=== PATIENT | female | born 1985 | race African-American/Black ===

== ENCOUNTER 2018-02-24 04:12 | Emergency (ER) | payer OTHER ==
[2018-02-24] MEDS ORDERED: HYDROmorphone INJ* 2 MG/ML CARPUJECT SYRINGE IV SLOW PU ONE (04:28)
[2018-02-24] MEDS ORDERED: Metoclopramide IV* 5 MG/ML 2 ML VIAL IV SLOW PU ONE (04:28)
[2018-02-24 04:49] LABS: Hematocrit 43 % (35-47); Mean Corpuscular HGB Conc 35 g/dl (31-36); Mean Corpuscular Hemoglobin 30 pg (27-31); Mean Corpuscular Volume 88 fL (80-97); Mean Platelet Volume 8.9 um3 (7.4-10.4); Platelet Count 191 10^3/ul (150-450); Red Blood Count 4.93 10^6/ul (4.0-5.4); Red Cell Distribution Width 13 % (10.5-15)
[2018-02-24 05:07] LABS: ABS Basophils 0 10^3/ul (0-0.2); ABS Eosinophils 0.1 10^3/ul (0-0.6); ABS Lymphocytes 4.2 10^3/ul (1.0-4.8); ABS Monocytes 0.5 10^3/ul (0-0.8); ABS Neutrophils 1.2 10^3/ul (1.5-7.7)
[2018-02-24 05:11] LABS: Urine Appearance Cloudy; Urine Blood 2+ (Negative); Urine Color Yellow; Urine Ketones Negative (Negative); Urine Protein Negative (Negative); Urine Specific Gravity 1.028 (1.010-1.030); Urine Urobilinogen Negative (Negative)
[2018-02-24 05:51] LABS: ABS Nucleated RBC 0 10^3/ul; Eosinophil % 1.2 % (0-6); Lymphocyte % 70.1 % (25-47); Nucleated Red Blood Cells % 0.1
[2018-02-24] MEDS ORDERED: Ondansetron INJ* 2 MG/ML VIAL IV ONE (06:36)
--- NOTE | 2018-02-24 06:54 | ED ---
Randolph Jack Elizabeth, scribed for Dick Burns MD on 02/24/18 at 0429 . Abdominal Pain/Female - HPI Summary HPI Summary: This patient is a 32 year old F presenting to [facility] with a chief complaint of lower abd pain since 0:00. The patient reports that she had intercourse at 0:00 , after which she noticed the pain. She reports that the pain radiates to her vagina and she has had some vaginal discharge. The patient notes that the pain worsened at 3:30. The patient rates the pain 9/10 in severity. Symptoms aggravated by nothing. Symptoms alleviated by nothing. Patient denies , nausea or vomiting. LNMP was 6 days ago. The patient uses the NuvaRing. - History of Current Complaint Chief Complaint: EDGeneral Stated Complaint: ABD PAIN Time Seen by Provider: 02/24/18 04:20 Hx Obtained From: Patient Onset/Duration: Gradual Onset, Lasting Hours - since 0:00, Still Present Timing: Constant Severity Initially: Moderate Severity Currently: Moderate Pain Intensity: 9 Pain Scale Used: 0-10 Numeric Location: Diffuse Radiates to: Other - vaginal cordova Aggravating Factor(s): Nothing Alleviating Factor(s): Nothing Associated Signs and Symptoms: Positive: Vaginal Discharge. Negative: Nausea, Vomiting Allergies/Adverse Reactions: Allergies Allergy/AdvReac Type Severity Reaction Status Date / Time No Known Allergies Allergy Verified 11/12/12 08:59 PMH/Surg Hx/FS Hx/Imm Hx Opthamlomology History: Denies: Hx Legally Blind Infectious Disease History: No Infectious Disease History: Denies: Traveled Outside the [place] in Last 30 Days - Family History Known Family History: Negative: Seizure Disorder - Social History Alcohol Use: Rare Substance Use Type: Reports: None Smoking Status (MU): Former Smoker Review of Systems Negative: Epistaxis Negative: Chest Pain Positive: Abdominal Pain - lower abdomen. Negative: Vomiting, Nausea Positive: discharge All Other Systems Reviewed And Are Negative: Yes Physical Exam - Summary Physical Exam Summary: VITAL SIGNS: Reviewed. GENERAL: ~Patient is a well-developed and nourished female who uncomfortable and thrashing in the stretcher. Patient is not in any acute respiratory distress. HEAD AND FACE: No signs of trauma. No ecchymosis, hematomas or skull depressions. No sinus tenderness. EYES: PERRLA, EOMI x 2, No injected conjunctiva, no nystagmus. EARS: Hearing grossly intact. Ear canals and tympanic membranes are within normal limits. MOUTH: Oropharynx within normal limits. NECK: Supple, trachea is midline, no adenopathy, no JVD, no carotid bruit, no c- spine tenderness, neck with full ROM. CHEST: Symmetric, no tenderness at palpation LUNGS: Clear to auscultation bilaterally. No wheezing or crackles. CVS: Regular rate and rhythm, S1 and S2 present, no murmurs or gallops appreciated. ABDOMEN: Soft. RLQ tenderness. No signs of distention. No rebound no guarding, and no masses palpated. Bowel sounds are normal. EXTREMITIES: FROM in all major joints, no edema, no cyanosis or clubbing. NEURO: Alert and oriented x 3. No acute neurological deficits. Speech is normal and follows commands. SKIN: Dry and warm Triage Information Reviewed: Yes Vital Signs On Initial Exam: Initial Vitals Temp Pulse Resp BP Pulse Ox 97.1 F 90 22 150/130 100 02/24/18 04:13 02/24/18 04:13 02/24/18 04:13 02/24/18 04:13 02/24/18 04:13 Vital Signs Reviewed: Yes Diagnostics - Vital Signs Vital Signs Temp Pulse Resp BP Pulse Ox 02/24/18 04:13 97.1 F 90 22 150/130 100 - Laboratory Result Diagrams: 02/24/18 04:35 02/24/18 04:35 Lab Statement: Any lab studies that have been ordered have been reviewed, and results considered in the medical decision making process. - CT CT Abd/Pelvis CT Interpretation: Positive (See Comments) - some distension of the right renal collecting system and proximal ureter. There is no visualized ureteral stone. ED physician has reviewed these radiology reports. CT Interpretation Completed By: Radiologist - Additional Comments Diagnostic Additional Comments: US transvaginal Interpreted by radiologist. Impression: no acute findings. Dr. Burns has reviewed this report. Abdominal Pain Fem Course/Dx - Course Course Of Treatment: Transvaginal US reveals, per radiologist, no acute findings. CT Abd/Pelvis reveals, per radiologist, some distension of the right renal collecting system and proximal ureter. There is no visualized ureteral stone. ED physician has reviewed these radiology reports. In the ED course the patient was given Zofran, Reglan, and Dilaudid. Patient will be discharged home with dx of renal colic with prescription for Reglan and oxycodone. The patient is agreeable with this plan. - Diagnoses Provider Diagnoses: Renal colic Discharge - Sign-Out/Discharge Documenting (check all that apply): Discharge/Admit/Transfer - Discharge Plan Condition: Stable Disposition: HOME Prescriptions: Metoclopramide TAB* [Reglan TAB*] 10 mg PO Q6H PRN #20 tab PRN Reason: Nausea/Vomiting oxyCODONE/Acetamin 5/325 MG* [Percocet 5/325 TAB*] 1 tab PO Q6H PRN #14 tab MDD 4 PRN Reason: Pain Patient Education Materials: Renal Colic (ED) Referrals: Temitope Perez MD [Primary Care Provider] - 2 Days Additional Instructions: Follow up with primary care physician in 2-3 day if symptoms persist. Return to the emergency department with any new or worsening symptoms. The documentation as recorded by the Randolph salazar Elizabeth accurately reflects the service I personally performed and the decisions made by Katy loyola Abdul, MD.
[2018-02-24 08:03] VITALS: BP 114/75
--- NOTE | 2018-02-24 08:10 | RAD ---
INDICATION: Right lower quadrant pain for 4 hours COMPARISON: CT February 24, 2018 TECHNIQUE: Longitudinal and transverse transvaginal scans of the pelvis were obtained. FINDINGS: Uterus: The uterus is normal in size. There are no focal masses. The uterus measures 6.9 x 2.3 x 4.8 cm. Endometrial thickness: The endometrial thickness is measured at 0.4 cm. . Free fluid: There is no significant free fluid . Ovaries: The ovaries are normal in size. The right ovary measures 2.8 x 0.8 x 1.9 cm. The left ovary measures 2.7 x 1.5 x 1.9 cm. . Doppler interrogation demonstrates flow to each ovary. Other: None IMPRESSION: THE SPECIFIC SONOGRAPHIC ABNORMALITIES. NO FINDINGS OF TORSION.
--- NOTE | 2018-02-24 08:13 | RAD ---
CLINICAL HISTORY: Abdominal and vaginal pain COMPARISON: Ultrasound dated February 24, 2018 TECHNIQUE: Multiple contiguous axial CT scans were obtained of the abdomen and pelvis, without intravenous contrast enhancement. Coronal and sagittal multiplanar reformations are submitted for review. Oral contrast was not administered. FINDINGS: The study is limited by the lack of intravenous contrast. This limits evaluation of the solid organs and vasculature. LUNG BASES: The lung bases are clear. LIVER: The liver is normal in shape, size, contour, and attenuation. BILE DUCTS: There is no intrahepatic or extrahepatic biliary dilatation. GALLBLADDER: The gallbladder is normal, without pericholecystic inflammatory change. PANCREAS: The pancreas is normal, without mass or ductal dilatation. SPLEEN: Normal in size and appearance. UPPER GI TRACT: Evaluation of the gastrointestinal tract is limited by incomplete gastric distention. The upper GI tract is unremarkable. SMALL BOWEL AND MESENTERY: The small bowel is normal in contour, course, and caliber. There is no obstruction or dilatation. COLON: The colon is normal in contour, course, caliber. There is no pericolonic inflammatory change. There is a tubular, vermiform, hollow viscus that is blind ending, and originates from the cecum, consistent with a normal appendix. There is no periappendiceal inflammatory change. This is best seen on axial images 112 through 119 ADRENALS: Normal bilaterally. KIDNEYS: There is mild right pelviectasis and proximal hydroureter. There is no appreciable nephrolithiasis. BLADDER: The bladder is smooth in contour. PELVIC ORGANS: The uterus and adnexa are grossly normal for technique. A pessary or cervical cup is noted AORTA: The aorta is normal. IVC: Unremarkable LYMPH NODES: There is no lymphadenopathy by size criteria. ABDOMINAL WALL: There is no evidence for abdominal wall hernia. BONES AND SOFT TISSUES: Unremarkable OTHER: None IMPRESSION: MILD RIGHT PELVIECTASIS AND PROXIMAL HYDROURETER WITHOUT NEPHROLITHIASIS.
== END 2018-02-24 08:02 | disposition home or self-care (01) ==
LOC: ED 04:12
DX: N23 Unspecified renal colic (principal); Z87.891 Personal history of nicotine dependence; N13.4 Hydroureter; N13.30 Unspecified hydronephrosis
CPT/HCPCS: 36415; 74176; 76830; 80053; 81003; 81015; 83690; 84702; 85025; 86140; 87086; 96374; 96375; 96376; 99283; J1170; J2405; J2765

== ENCOUNTER 2019-05-08 09:27 | Emergency (ER) | payer OTHER ==
--- NOTE | 2019-05-08 10:12 | ED ---
Complex/Multi-Sys Presentation - HPI Summary HPI Summary: The patient is a 33 y/o F presenting to [facility] with a chief complaint of sudden onset left facial swelling noticed when she woke up this morning. She reports that she had [place] Palsy in the left face at age 15 and went through physical therapy to alleviate symptoms up to 90%. Today, she woke up with swelling in the left face with a tight sensation in the facial muscles on the same side, but she denies any numbness in the face. She additionally denies numbness or weakness in any of the extremities. 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 There is no pain the face, but she states she has some dental pain secondary to needing teeth extractions, but the pain is not worse than usual. No other PMHx. Former smoker , rare EtOH, no substance use. Medications reviewed. Allergies reviewed. - History Of Current Complaint Chief Complaint: EDDentalPain Time Seen by Provider: 05/08/19 10:03 Hx Obtained From: Patient Onset/Duration: Sudden Onset, Lasting Hours - woke up with symptoms, Still Present Timing: Constant, Hours Severity Currently: Moderate Severity Initially: Moderate Aggravating Factor(s): nothing Alleviating Factor(s): nothing Associated Signs And Symptoms: Positive: Other - POSITIVE: left facial swelling , left eye transfer car operator drier and more difficult to close on left, tightness of muscles on left face; NEGATIVE: numbness in face or extremities, changes in vision or hearing. 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15) - Surgical History Surgical History: None Surgery Procedure, Year, and Place: none Infectious Disease History: No Infectious Disease History: Denies: Traveled Outside the [place] in Last 30 Days - Family History Known Family History: Positive: Diabetes Negative: Seizure Disorder - Social History Alcohol Use: Rare Hx Substance Use: No Substance Use Type: Reports: None Hx Tobacco Use: Yes Smoking Status (MU): Former Smoker Review of Systems Positive: Other - swelling of the left face Positive: Other - POSITIVE: left eye is transfer car operator drier than right; NEGATIVE: changes in vision Positive: Other - NEGATIVE: changes in hearing Positive: Other - tightness in mucles on left face with more difficulty closing left eyelid secondary to symptoms Negative: Weakness - in extremities, Numbness - in face or extremities All Other Systems Reviewed And Are Negative: Yes Physical Exam - Summary Physical Exam Summary: Constitutional: Well-developed, Well-nourished, Alert. (-) Distressed Skin: No purpuric lesions on nose or eyes, Warm, Dry HENT: Normocephalic; Atraumatic Eyes: Conjunctiva normal Neck: Musculoskeletal ROM normal neck. (-) JVD, (-) Stridor, (-) Tracheal deviation Cardio: Rhythm regular, rate normal, Heart sounds normal; Intact distal pulses; The pedal pulses are 2+ and symmetric. Radial pulses are 2+ and symmetric. (-) Murmur Pulmonary/Chest wall: Effort normal. (-) Respiratory distress, (-) Wheezes, (-) Rales Abd: Soft, (-) tenderness, (-) Distension, (-) Guarding, (-) Rebound Musculoskeletal: (-) Edema Lymph: (-) Cervical adenopathy Neuro: Alert, Oriented x3, Strength normal, No forehead wrinkles on left, Unable to fully close eye on left Facial asymmetry on left, Sensation intact, Cranial nerves II-XII are grossly intact. (-) Dysmetria, (-) Nystagmus, (-) Ataxia by finger to nose testing, (-) Sensory deficit. Psych: Mood and affect Normal Triage Information Reviewed: Yes Vital Signs On Initial Exam: Initial Vitals Temp Pulse Resp BP Pulse Ox 98.2 F 117 18 141/98 100 05/08/19 09:34 05/08/19 09:34 05/08/19 09:34 05/08/19 09:34 05/08/19 09:34 Vital Signs Reviewed: Yes Diagnostics - Vital Signs Vital Signs Temp Pulse Resp BP Pulse Ox 05/08/19 09:34 98.2 F 117 18 141/98 100 - Laboratory Lab Statement: Any lab studies that have been ordered have been reviewed, and results considered in the medical decision making process. Re-Evaluation - Re-Evaluation First Eval Re-Evaluation Time: 10:25 Comment: I discussed discharge plan and instructions with the patient. 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 Patient has forehead involvement making this a peripheral lesion. Patient has no other neurologic symptoms does not need any workup for CVA at this time. Patient is unable to close her eyes so she was provided I past year. Patient was treated empirically with doxycycline after. Test was sent. Patient was instructed to follow-up with her primary care doctor within 2 weeks for reassessment of further lyme treatment. Patient had all her questions answered. Patient was noted to be hypertensive here and was instructed to follow-up with her primary care doctor for that. - Diagnoses Provider Diagnoses: Bajwa's palsy Discharge - Sign-Out/Discharge Documenting (check all that apply): Patient Departure - Patient will be discharged home. Patient Received Moderate/Deep Sedation with Procedure: No - Discharge Plan Condition: Good Disposition: HOME Prescriptions: DOXYcycline CAP(*) [DOXYcycline 100MG CAP(*)] 100 mg PO BID 14 Days #28 cap Patient Education Materials: Bajwa Palsy (ED) Referrals: Temitope Perez MD [Primary Care Provider] - 3 Days Additional Instructions: Keep your eye covered at night. Please use artificial tears. Take your antibiotics as prescribed. PLEASE RETURN TO EMERGENCY DEPARTMENT FOR ANY NEW OR WORSENING SYMPTOMS. FOLLOW UP WITH YOUR PRIMARY CARE PHYSICIAN IN 2-3 DAYS. - Billing Disposition and Condition Condition: GOOD Disposition: Home - Attestation Statements Document Initiated by Dany: Yes Documenting Scribe: Nyla Ruano Provider For Whom Dany is Documenting (Include Credential): Dr. Randal Joe MD Scribe Attestation: Nyla Jack scribed for Dr. Randal Joe MD on 05/08/19 at 1042. Scribe Documentation Reviewed: Yes Provider Attestation: The documentation as recorded by the Nyla salazar accurately reflects the service I personally performed and the decisions made by me, Dr. Randal Joe MD Status of Scribe Document: Viewed
[2019-05-08 10:47] VITALS: BP 143/91
== END 2019-05-08 10:46 | disposition home or self-care (01) ==
LOC: ED 09:27
DX: G51.0 Bell's palsy (principal); Z87.891 Personal history of nicotine dependence
CPT/HCPCS: 36415; 86618; 99282